=== PATIENT | female | born 2000 | race Caucasian/White ===

== ENCOUNTER 2019-11-13 18:20 | Emergency (ER) | payer BC, OTHER ==
[~2019-11-13] VITALS: Ht 160 cm; Wt 40.8 kg
[2019-11-13] MEDS ORDERED: PREDNISONE 20 M20 MG PO (20:16)
[2019-11-13] MEDS ORDERED: PEPCID AC20 MG PO (20:16)
[2019-11-13] MEDS ORDERED: BENADRYL25 MG PO (20:16)
[2019-11-13 20:27] VITALS: BP 120/77
== END 2019-11-13 20:20 | disposition home or self-care (01) ==
LOC: ER 18:20
DX: R21 Rash and other nonspecific skin eruption (principal); T78.1XXA Other adverse food reactions, not elsewhere classified, initial encounter; Z88.0 Allergy status to penicillin; Z91.018 Allergy to other foods; Y92.89 Other specified places as the place of occurrence of the external cause